=== PATIENT | female | born 1995 | race Caucasian/White ===

== ENCOUNTER 2022-08-05 01:38 | Emergency (ER) | payer OTHER ==
[~2022-08-05] VITALS: Ht 154.9 cm; Wt 61.2 kg
[2022-08-05 02:03] VITALS: BP 116/78
[2022-08-05] MEDS ORDERED: CEPH500T PO (02:06)
[2022-08-05] MEDS ORDERED: IBUP-1957 PO (02:06)
[2022-08-05] MEDS ORDERED: SULF1TAB48 PO (02:07)
--- NOTE | 2022-08-05 02:09 | NUR ---
Patient discharged to home in stable condition. Written and verbal after care instructions given. Patient verbalizes understanding of instruction.
== END 2022-08-05 02:11 | disposition home or self-care (01) ==
LOC: ER 01:52
DX: K13.0 Diseases of lips (principal); Z79.899 Other long term (current) drug therapy